=== PATIENT | female | born 1950 | race Native Hawaiian/Other Pacific Islander ===

== ENCOUNTER 2016-09-22 10:59 | Emergency (ER) | payer OTHER ==
[~2016-09-22] VITALS: Ht 152.4 cm; Wt 87.5 kg
[~2016-09-22 10:59] MED LIST: CITA20TA2 PO; HYDR25TA15 PO; MICARDIS40 MG PO; OXYB5TAB56 PO
[2016-09-22 11:13] VITALS: TEMP 97.2
[2016-09-22 11:28] LABS: PLATELET COUNT 182 K/uL (152-353)
[2016-09-22 11:39] LABS: POTASSIUM 4.2 mmol/L (3.6-5.2); SODIUM 133 mmol/L (136-145)
[2016-09-22 12:03] LABS: PARTIAL THROMBOPLASTIN TIME 24.8 SECONDS (24.5-33.6)
[2016-09-22 12:44] VITALS: BP 133/73
== END 2016-09-22 13:12 | disposition short-term general hospital (02) ==
LOC: ED 10:59
DX: R07.89 Other chest pain (principal); R06.00 Dyspnea, unspecified; R94.31 Abnormal electrocardiogram [ECG] [EKG]
CPT/HCPCS: 36415; 80053; 82553; 84484; 85027; 85610; 85730; 93005; 99284

== ENCOUNTER 2016-09-22 13:07 | Outpatient (CLI) | payer OTHER | END 2016-09-22 13:35 | disposition short-term general hospital (02) | LOC: AMB 13:07 | DX: R07.89 Other chest pain (principal); R06.00 Dyspnea, unspecified; R94.31 Abnormal electrocardiogram [ECG] [EKG] | CPT/HCPCS: A0425; A0427 ==

== ENCOUNTER 2020-10-13 12:02 | Outpatient (CLI) | payer OTHER | END 2020-10-13 17:00 | disposition home or self-care (01) | LOC: LABW 12:02 | PROVIDERS: ATTEND Nurse Practitioner | DX: R05 Cough (principal) | CPT/HCPCS: 87070; 87077; 87186; 87205 ==